=== PATIENT | female | born 1975 | race Two or more races ===

== ENCOUNTER 2022-11-27 12:48 | Inpatient (IN) ==
--- NOTE | 2022-11-27 13:34 | EKG ---
Test Reason : high fever and back pain Blood Pressure : */* mmHG Vent. Rate : 87 BPM Atrial Rate : 87 BPM P-R Int : 134 ms QRS Dur : 72 ms QT Int : 320 ms P-R-T Axes : 74 49 45 degrees QTc Int : 385 ms Normal sinus rhythm Cannot rule out Anterior infarct , age undetermined Abnormal ECG No previous ECGs available Confirmed by Eric Zuleta ([id number]) on 11/28/2022 8:38:47 AM Referred By: Confirmed By: Eric Zuleta
[2022-11-27 13:42] LABS: BASOPHILS % (AUTO) 0.2 % (0.2-1.0); EOSINOPHILS % (AUTO) 0.4 % (0.9-2.9); HEMATOCRIT 36.6 % (36.0-47.0); HEMOGLOBIN 12.4 g/dL (12.0-16.0); LYMPHOCYTES % (AUTO) 13.1 % (21.0-51.0); MEAN CORPUSCULAR HEMOGLOBIN 31.7 pg (27.0-34.0); MEAN CORPUSCULAR HGB CONC 33.9 g/dL (33.0-35.0); MEAN CORPUSCULAR VOLUME 93.5 fL (80.0-100.0); MEAN PLATELET VOLUME 8.2 fL (7.4-11.0); MONOCYTES # (AUTO) 0.5 x10^3/uL (0.3-0.8); NEUTROPHILS # (AUTO) 5.8 x10^3/uL (2.2-4.8); NEUTROPHILS % (AUTO) 79.3 % (42.0-75.0); RED BLOOD COUNT 3.91 X10^6/uL (3.5-5.4); RED CELL DISTRIBUTION WIDTH 13.3 % (11.6-16.5); WHITE BLOOD COUNT 7.3 X10^3/uL (3.6-10.0)
[2022-11-27 13:49] LABS: INR 1.34 (0.8-1.3)
--- NOTE | 2022-11-27 13:49 | RAD ---
HISTORYSEPSISSTUDYCHEST, 1 VIEWCOMPARISONNoneTECHNIQUEPA or AP view of the chestFINDINGSCardiac and mediastinal contours are within normal limits. Linear left base opacities consistent with subsegmental atelectasis or scar. No consolidation or segmental lung collapse. No definite pleural effusion or pneumothorax.IMPRESSIONLeft base subsegmental atelectasis versus scar.Electronically signed by: Antoni Knight (Nov 27, 2022 13:47:51)
[2022-11-27 13:53] LABS: APPEARANCE,URINE MUCOID (CLEAR); COLOR,URINE ORANGE (YELLOW)
[2022-11-27 13:54] LABS: BACTERIA,URINE TRACE /HPF (NEGATIVE); RENAL EPITHELIAL CELLS,URINE FEW /HPF (NEGATIVE); SQUAMOUS EPITHELIAL CELL,UR FEW /HPF (NEGATIVE)
[2022-11-27 13:57] LABS: ALANINE AMINOTRANSFERASE 45 Units/L (12-78); ALBUMIN 3.5 g/dL (3.4-5.0); ALKALINE PHOSPHATASE 98 Units/L (46-116); AMYLASE 40 Units/L (25-115); ASPARTATE AMINO TRANSFERASE 22 Units/L (15-37); BLOOD UREA NITROGEN 13 mg/dL (7-18); CALCIUM 8.7 mg/dL (8.5-10.1); CARBON DIOXIDE 26.3 mmol/L (21-32); CHLORIDE 102 mmol/L (98-107); COR NA(FOR HYPERGLY) 136 mmol/L (136-145); CREATINE KINASE 179 Units/L (26-192); LIPASE 72 Units/L (73-393); SODIUM 136 mmol/L (136-145); TOTAL PROTEIN 7.7 g/dL (6.4-8.2); eGFR NON BLACK RACES > 60 (>60)
[2022-11-27] MEDS ORDERED: TORADOL 30 MG VIAL IVP ONE (14:05)
--- NOTE | 2022-11-27 14:07 | DR.GENAD ---
HPI Time Seen Time Seen by Provider: 11/27/22 13:50 PCP Primary Care Physician: osmin Complaint/Symptoms Chief Complaint:: seen yest in [place] and dx with sepsis and discharged. has been taking motrin with last dose at 4am. left flank pain that radiates to the lower left abd. with burning urination/ feels leg pain like bones broke Self Treatment fo Chief Complaint: taking motrin COVID-19 Coronavirus risk:travel/contact w/high risk person: No Has patient experienced Coronavirus symptoms: No Coronavirus symptoms experienced: Fever Source History Provided: Patient and Friend Mode of Arrival Mode of Arrival: Wheelchair Timing Onset of Chief Complaint: 11/24/22 PMH PMH Past Medical History: Yes Past Medical History Comment: urinary problems Past Surgical History: No Family History History of Family Medical Conditions: Yes Family Medical History: Diabetes Mellitus, Cancer and Coronary Artery Disease Social History Does any household member use tobacco: No Alcohol Use: None Do you use any recreational Drugs:: No Lives With: Alone and Family Lives Where: Home Travel Risk Coronavirus risk:travel/contact w/high risk person: No Has patient experienced Coronavirus symptoms: No Coronavirus symptoms experienced: Fever Infectious screening In the last 2 months have you had wt loss of >10#?: NO Have you had fever, night sweats or hemotysis?: No Have you traveled outside the country in the last 6 months?: Yes ([place]) Travel History Location: [facility] Isolation: Standard PE Vital Signs Vitals: Temperature 98.5 F Pulse Rate 77 Respiratory Rate 20 Blood Pressure 112/51 O2 Sat by Pulse Oximetry 99 ROR Labs Reviewed Result Diagrams: 11/27/22 13:28 11/27/22 13:28 Laboratory: WBC 7.3 X10^3/uL (3.6-10.0) 11/27/22 13:28 RBC 3.91 X10^6/uL (3.5-5.4) 11/27/22 13:28 Hgb 12.4 g/dL (12.0-16.0) 11/27/22 13:28 Hct 36.6 % (36.0-47.0) 11/27/22 13:28 MCV 93.5 fL (80.0-100.0) 11/27/22 13:28 MCH 31.7 pg (27.0-34.0) 11/27/22 13:28 MCHC 33.9 g/dL (33.0-35.0) 11/27/22 13: RDW 13.3 % (11.6-16.5) 11/27/22 13: Plt Count 208 X10^3/uL (150.0-450.0) 11/27/22 13:28 MPV 8.2 fL (7.4-11.0) 11/27/22 13:28 Neut % (Auto) 79.3 % (42.0-75.0) H 11/27/22 13:28 Lymph % (Auto) 13.1 % (21.0-51.0) L 11/27/22 13:28 [place] % (Auto) 7.0 % (0.0-13.0) 11/27/22 13:28 Eos % (Auto) 0.4 % (0.9-2.9) L 11/27/22 13:28 Baso % (Auto) 0.2 % (0.2-1.0) 11/27/22 13:28 Neut # (Auto) 5.8 x10^3/uL (2.2-4.8) H 11/27/22 13:28 Lymph # (Auto) 1.0 X10^3/uL (1.3-2.9) L 11/27/22 13:28 [place] # (Auto) 0.5 x10^3/uL (0.3-0.8) 11/27/22 13:28 Eos # (Auto) 0.0 x10^3/uL (0.0-0.2) 11/27/22 13:28 Baso # (Auto) 0.0 X10^3/uL (0.0-0.1) 11/27/22 13:28 Absolute Nucleated RBC 0.0 /100WBC 11/27/22 13:28 PT 16.2 SECONDS (11.8-14.3) 11/27/22 13:28 INR Target Range - 11/27/22 13:28 INR 1.34 (0.8-1.3) H 11/27/22 13:28 APTT 36.6 SECONDS (22.9-36.5) H 11/27/22 13:28 PTT Comment - 11/27/22 13:28 Sample Site Rr 11/27/22 14:25 ABG pH 7.490 (7.35-7.45) H 11/27/22 14:25 ABG pCO2 31.0 mmHg (35.0-45.0) L 11/27/22 14:25 ABG pO2 86.0 mmHg (80.0-100.0) 11/27/22 14:25 ABG HCO3 23.6 mmol/L (22-26) 11/27/22 14:25 ABG O2 Saturation 97.0 % (90-100) 11/27/22 14:25 ABG Base Excess 0.9 mmol/L (-2.0-2.0) 11/27/22 14:25 Deuce Test Pos 11/27/22 14:25 A-a Gradient 25.0 mmHg 11/27/22 14:25 FiO2 21.0 11/27/22 14:25 Blood Gas Comments Marielle well cb 11/27/22 14:25 Sodium 136 mmol/L (136-145) 11/27/22 13:28 Corrected Sodium 136 mmol/L (136-145) 11/27/22 13:28 Potassium 3.4 mmol/L (3.5-5.1) L 11/27/22 13:28 Chloride 102 mmol/L (98-107) 11/27/22 13:28 Carbon Dioxide 26.3 mmol/L (21-32) 11/27/22 13:28 BUN 13 mg/dL (7-18) 11/27/22 13:28 Creatinine 1.00 mg/dL (0.55-1.02) 11/27/22 13:28 Est GFR (MDRD) Af Amer > 60 (>60) 11/27/22 13:28 Est GFR (MDRD) Non-Af > 60 (>60) 11/27/22 13:28 Glucose 116 mg/dL (65-99) H 11/27/22 13:28 Lactic Acid 0.7 mmol/L (0.4-2.0) 11/27/22 13:28 Calcium 8.7 mg/dL (8.5-10.1) 11/27/22 13:28 Corrected Calcium TNP 11/27/22 13:28 Phosphorus 2.0 mg/dL (2.6-4.7) L 11/27/22 13:28 Magnesium 2.0 mg/dL (2.0-2.9) 11/27/22 13:28 Total Bilirubin 0.80 mg/dL (0.2-1.0) 11/27/22 13:28 AST 22 Units/L (15-37) 11/27/22 13:28 ALT 45 Units/L (12-78) 11/27/22 13:28 Alkaline Phosphatase 98 Units/L (46-116) 11/27/22 13:28 Creatine Kinase 179 Units/L (26-192) 11/27/22 13:28 Troponin I High Sens < 4.0 ng/L (4.0-60.0) L 11/27/22 13:28 Total Protein 7.7 g/dL (6.4-8.2) 11/27/22 13:28 Albumin 3.5 g/dL (3.4-5.0) 11/27/22 13:28 Globulin 4.2 g/dL (2.5-4.5) 11/27/22 13:28 Albumin/Globulin Ratio 0.8 Ratio (1.1-2.1) L 11/27/22 13:28 Amylase 40 Units/L (25-115) 11/27/22 13:28 Lipase 72 Units/L (73-393) L 11/27/22 13:28 Specimen Type Cancelled 11/27/22 13:25 Urine Color Cancelled 11/27/22 13:25 Urine Appearance Cancelled 11/27/22 13:25 Urine pH Cancelled 11/27/22 13:25 Ur Specific [place] Cancelled 11/27/22 13:25 Urine Protein Cancelled 11/27/22 13:25 Urine Glucose (UA) Cancelled 11/27/22 13:25 Urine Ketones Cancelled 11/27/22 13:25 Urine Blood Cancelled 11/27/22 13:25 Urine Nitrite Cancelled 11/27/22 13:25 Urine Bilirubin Cancelled 11/27/22 13:25 Urine Urobilinogen Cancelled 11/27/22 13:25 Ur Leukocyte Esterase Cancelled 11/27/22 13:25 Urine RBC 10-20 /HPF (0-3) A 11/27/22 13:20 Urine WBC 10-20 /HPF (0-5) A 11/27/22 13:20 Ur Squamous Epith Cells Few /HPF (NEGATIVE) 11/27/22 13:20 Ur Renal Epithelial Cell Few /HPF (NEGATIVE) 11/27/22 13:20 Urine Bacteria Trace /HPF (NEGATIVE) 11/27/22 13:20 Urine Mucus Many /HPF (NEGATIVE) 11/27/22 13:20 Ur Culture Indicated? No/not indicated 11/27/22 13:20 SARS-CoV-2 (PCR) Negative (NEGATIVE) 11/27/22 15:58 Influenza Type A (PCR) Negative (NEGATIVE) 11/27/22 15:58 Influenza Type B (PCR) Negative (NEGATIVE) 11/27/22 15:58 RSV (PCR) Negative (NEGATIVE) 11/27/22 15:58 Opioid Opioid Risk Tool Age (Yoel box if 16-45): No History of Preadolescent Sexual Abuse: No Total: 0 Total Score Risk Category: Low Risk Copyright: Phil TORIBIO predicting aberrant behaviors Discharge Plan Discharge Plan Patient Disposition: 01 HOME, SELF-CARE Condition: Stable Orders to Discharge Patient Discharge Orders: Transfer (Routine); Ordered 11/27/22 Ordered By: YAZMIN AVENDAÑO
[2022-11-27] MEDS ORDERED: TORADOL 30 MG VIAL ONE (14:08)
[2022-11-27 14:29] LABS: LACTIC ACID 0.7 mmol/L (0.4-2.0)
[2022-11-27 14:30] LABS: ABG BASE EXCESS 0.9 mmol/L (-2.0-2.0); ABG HCO3 23.6 mmol/L (22-26)
[2022-11-27 14:31] LABS: ABG ALLEN TEST POS
[2022-11-27] MEDS ORDERED: ROCEPHIN VIAL 1 GRAM IVP ONE (15:36)
[2022-11-27] MEDS ORDERED: ROCEPHIN VIAL 1 GRAM ONE (15:45)
[2022-11-27] MEDS ORDERED: MORPHINE SULFATE INJ 4 MG IVP ONE (17:55)
[2022-11-27] MEDS ORDERED: MORPHINE SULFATE INJ 4 MG ONE (17:56)
[2022-11-27] MEDS ORDERED: ZOFRAN INJ 4 MG VIAL ONE (18:01)
[2022-11-27] MEDS ORDERED: TYLENOL 500 MG TAB EXTRA STRENGTH PO ONE ×2 (18:01→18:06)
[2022-11-27] MEDS ORDERED: ZOFRAN INJ 4 MG VIAL IVP ONE (18:06)
[2022-11-27] MEDS ORDERED: POTASSIUM CHLORIDE LIQ 20 MEQ UDC PO PRN (19:06)
[2022-11-27] MEDS ORDERED: MICRO K EXTEN CAP 10 MEQ PO PRN (19:06)
[2022-11-27] MEDS ORDERED: KLOR-CON PO PRN (19:06)
[2022-11-27] MEDS ORDERED: K-RIDER 10 MEQ/NS 100 ML 10 MEQ/100 ML BAG IV PRN (19:06)
[2022-11-27] MEDS ORDERED: POTASSIUM CHL 40 MEQ/NS 0.45% 500 ML IV PRN (19:06)
[2022-11-27] MEDS ORDERED: POTASSIUM CHL 60 MEQ/NS 0.45% 500 ML IV PRN (19:06)
[2022-11-27] MEDS: D5 LR 1,000 ML 1,000 ML IV SCH (19:34)
[2022-11-27 19:39] LABS: LACTIC ACID 0.5 mmol/L (0.4-2.0)
[2022-11-27 19:41] VITALS: BMI 25.7
[2022-11-27] MEDS: CIPRO IV 400 MG PREMIX* 400 MG/200 ML IV.SOLN. IV SCH (20:35)
[2022-11-28 01:48] LABS: LACTIC ACID 0.9 mmol/L (0.4-2.0)
[2022-11-28] MEDS: D5 LR 1,000 ML 1,000 ML IV SCH ×4 (02:06→20:24)
[2022-11-28 05:22] LABS: BASOPHILS % (AUTO) 0.1 % (0.2-1.0); EOSINOPHILS % (AUTO) 0.5 % (0.9-2.9); HEMATOCRIT 29.5 % (36.0-47.0); HEMOGLOBIN 10.3 g/dL (12.0-16.0); LYMPHOCYTES % (AUTO) 14.8 % (21.0-51.0); MEAN CORPUSCULAR HEMOGLOBIN 32.4 pg (27.0-34.0); MEAN CORPUSCULAR HGB CONC 34.9 g/dL (33.0-35.0); MEAN CORPUSCULAR VOLUME 92.8 fL (80.0-100.0); MEAN PLATELET VOLUME 8.3 fL (7.4-11.0); MONOCYTES # (AUTO) 0.7 x10^3/uL (0.3-0.8); MONOCYTES % (AUTO) 10.2 % (0.0-13.0); NEUTROPHILS # (AUTO) 4.9 x10^3/uL (2.2-4.8); NEUTROPHILS % (AUTO) 74.4 % (42.0-75.0); RED BLOOD COUNT 3.18 X10^6/uL (3.5-5.4); RED CELL DISTRIBUTION WIDTH 13.3 % (11.6-16.5); WHITE BLOOD COUNT 6.6 X10^3/uL (3.6-10.0)
[2022-11-28 05:24] LABS: ALANINE AMINOTRANSFERASE 31 Units/L (12-78); ALBUMIN 2.6 g/dL (3.4-5.0); ALKALINE PHOSPHATASE 91 Units/L (46-116); ASPARTATE AMINO TRANSFERASE 14 Units/L (15-37); BLOOD UREA NITROGEN 10 mg/dL (7-18); CALCIUM 8.2 mg/dL (8.5-10.1); CARBON DIOXIDE 28.3 mmol/L (21-32); CHLORIDE 105 mmol/L (98-107); COR CA(FOR HYPOALB) 9.3 mg/dL (8.5-10.1); COR NA(FOR HYPERGLY) 139 mmol/L (136-145); CREATININE 0.86 mg/dL (0.55-1.02); SODIUM 138 mmol/L (136-145); TOTAL PROTEIN 6.1 g/dL (6.4-8.2); eGFR NON BLACK RACES > 60 (>60)
[2022-11-28] MEDS: TORADOL 30 MG VIAL IVP PRN ×2 (07:42→17:20)
[2022-11-28] MEDS ORDERED: NS 1,000 ML IV 1,000 ML IV ONE (08:38)
[2022-11-28] MEDS: VSL#3 PO SCH (09:20)
[2022-11-28] MEDS: CIPRO IV 400 MG PREMIX* 400 MG/200 ML IV.SOLN. IV SCH ×2 (10:32→20:22)
--- NOTE | 2022-11-28 13:43 | CT ---
HISTORYLOWER ABD PAINSTUDYABDOMEN/PELVIS WITH CONCOMPARISONNone.TECHNIQUEMultiple axial images of the abdomen and pelvis were obtained from the lung bases to the upper thighs after the administration of IV contrast. Dose reduction techniques including Automated Exposure Control (AEC) and adjustment of mA and kV were utilized.FINDINGSLung bases demonstrate mild scattered subsegmental atelectasis versus scar. Trace bilateral pleural effusions. The heart is normal in size. The liver, gallbladder, spleen, pancreas, adrenal glands, and right kidney have a benign appearance. There is mild left hydronephrosis with subtle enhancement of the left renal pelvis and proximal ureter. There is subtle low-attenuation with altered corticomedullary differentiation at the left upper pole of the kidney. The urinary bladder appears benign. The uterus is present. No large abnormal pelvic mass. There is right adnexal lesion with thin peripheral enhancement that measures 2.1 cm image 64 series 3. Mild amount of fluid in the pelvis. Diverticulosis of the colon without evidence of diverticulitis. The appendix appears normal. Negative for bowel obstruction. [id number] amount of stool in the colon. Non-atherosclerotic normal caliber abdominal aorta. No free air or collection. No pathologic adenopathy. Small fat containing umbilical hernia. No acute osseous abnormality. Moderate degenerative disc disease with vacuum disc phenomena at L5-S1.IMPRESSIONSubtle low-attenuation with altered corticomedullary differentiation of the left kidney upper pole suspicious for early pyelonephritis. Mildly dilated left renal pelvis with thin peripheral enhancement suggests urinary tract infection.2.1 cm right adnexal lesion with thin peripheral enhancement. This can be seen with a corpus luteal or hemorrhagic cyst.Mild free fluid in the pelvis.Small fat containing umbilical hernia.Trace pleural effusions.Electronically signed by: Antoni Knight (Nov 28, 2022 13:41:48)
[2022-11-28] MEDS: K-DUR TAB 20 MEQ PO PRN (20:21)
[2022-11-29] MEDS: D5 LR 1,000 ML 1,000 ML IV SCH ×4 (05:12→20:24)
[2022-11-29 05:39] LABS: MEAN PLATELET VOLUME 8.3 fL (7.4-11.0)
[2022-11-29 05:43] LABS: BASOPHILS % (AUTO) 0.2 % (0.2-1.0); EOSINOPHILS # (AUTO) 0.1 x10^3/uL (0.0-0.2); EOSINOPHILS % (AUTO) 1.7 % (0.9-2.9); HEMATOCRIT 28.6 % (36.0-47.0); HEMOGLOBIN 9.9 g/dL (12.0-16.0); LYMPHOCYTES # (AUTO) 1.4 X10^3/uL (1.3-2.9); LYMPHOCYTES % (AUTO) 24.5 % (21.0-51.0); MEAN CORPUSCULAR HEMOGLOBIN 31.9 pg (27.0-34.0); MEAN CORPUSCULAR HGB CONC 34.7 g/dL (33.0-35.0); MEAN CORPUSCULAR VOLUME 92.1 fL (80.0-100.0); MONOCYTES # (AUTO) 0.5 x10^3/uL (0.3-0.8); MONOCYTES % (AUTO) 9.3 % (0.0-13.0); NEUTROPHILS # (AUTO) 3.6 x10^3/uL (2.2-4.8); NEUTROPHILS % (AUTO) 64.3 % (42.0-75.0); RED BLOOD COUNT 3.11 X10^6/uL (3.5-5.4); RED CELL DISTRIBUTION WIDTH 13.8 % (11.6-16.5); WHITE BLOOD COUNT 5.7 X10^3/uL (3.6-10.0)
[2022-11-29 05:49] LABS: ALANINE AMINOTRANSFERASE 42 Units/L (12-78); ALBUMIN 2.4 g/dL (3.4-5.0); ALKALINE PHOSPHATASE 111 Units/L (46-116); ASPARTATE AMINO TRANSFERASE 30 Units/L (15-37); BLOOD UREA NITROGEN 7 mg/dL (7-18); CALCIUM 8.2 mg/dL (8.5-10.1); CARBON DIOXIDE 24.1 mmol/L (21-32); CHLORIDE 107 mmol/L (98-107); COR CA(FOR HYPOALB) 9.5 mg/dL (8.5-10.1); COR NA(FOR HYPERGLY) 140 mmol/L (136-145); CREATININE 0.79 mg/dL (0.55-1.02); SODIUM 139 mmol/L (136-145); TOTAL PROTEIN 5.9 g/dL (6.4-8.2); eGFR NON BLACK RACES > 60 (>60)
--- NOTE | 2022-11-29 07:41 | DR.H&P ---
H&P History & Physical for Day of: H&P Date: 11/28/22 Chief Complaint Chief Complaint: Abdominal pain Chills, weakness Allergies Allergies Allergy/AdvReac Type Severity Reaction Status Date / Time No Known Allergies Allergy Verified 11/27/22 12:52 History of Present Illness History of Present Illness: Pt is a 47 year old female presenting with suprapubic and left flank pain for the past 2-3 days. She reports having dysuria, chills. Pt went to [place] ED and was treated for UTI and discharged. She did have imaging CT abdomen and pelvis that commented on possible early pyelonephritis on the left. Pt did not improve at home and came to [facility] ED. Labs/imaging: Wbc 6.6, Hgb 10.3, Plt 184, Na 138, K 3.8, Creatinine 0.86, Glucose 133, LA 0.6, Urine/blood culture pending from both [place] and [facility]. Will admit patient for acute pyelonephritis. Start on IV antibiotics: IV ciprofloxacin 400mg BID. She has been hypotensive, will bolus 1L normal saline and continue with IVF D5 LR@125ml/h. Will order another CT abdomen and pelvis for further evaluation. Continue to closely monitor and follow up labs/imaging. Family History Family Medical History: Diabetes Mellitus, Cancer and Hypertension Social History Does patient currently use any type of tobacco product: No Have you used tobacco products in the last 12 months: No Type of Tobacco Use: None Does any household member use tobacco: No Alcohol Use: None Medications Home Medications: No Known Allergies Allergy (Verified 11/27/22 12:52) CONTINUE taking the following medications ciprofloxacin HCl 500 mg tablet (Cipro) 500 mg PO BID 11/27/22 [History] Labs Result Diagrams: 11/29/22 05:00 11/29/22 05:00 Labs: Laboratory WBC 6.6 X10^3/uL (3.6-10.0) 11/28/22 04:10 RBC 3.18 X10^6/uL (3.5-5.4) L 11/28/22 04:10 Hgb 10.3 g/dL (12.0-16.0) L D 11/28/22 04:10 Hct 29.5 % (36.0-47.0) L 11/28/22 04:10 MCV 92.8 fL (80.0-100.0) 11/28/22 04:10 MCH 32.4 pg (27.0-34.0) 11/28/22 04:10 MCHC 34.9 g/dL (33.0-35.0) 11/28/22 04:10 RDW 13.3 % (11.6-16.5) 11/28/22 04:10 Plt Count 184 X10^3/uL (150.0-450.0) 11/28/22 04:10 MPV 8.3 fL (7.4-11.0) 11/28/22 04:10 Neut % (Auto) 74.4 % (42.0-75.0) 11/28/22 04:10 Lymph % (Auto) 14.8 % (21.0-51.0) L 11/28/22 04:10 [place] % (Auto) 10.2 % (0.0-13.0) 11/28/22 04:10 Eos % (Auto) 0.5 % (0.9-2.9) L 11/28/22 04:10 Baso % (Auto) 0.1 % (0.2-1.0) L 11/28/22 04:10 Neut # (Auto) 4.9 x10^3/uL (2.2-4.8) H 11/28/22 04:10 Lymph # (Auto) 1.0 X10^3/uL (1.3-2.9) L 11/28/22 04:10 [place] # (Auto) 0.7 x10^3/uL (0.3-0.8) 11/28/22 04:10 Eos # (Auto) 0.0 x10^3/uL (0.0-0.2) 11/28/22 04:10 Baso # (Auto) 0.0 X10^3/uL (0.0-0.1) 11/28/22 04:10 Absolute Nucleated RBC 0.0 /100WBC 11/28/22 04:10 PT 16.2 SECONDS (11.8-14.3) 11/27/22 13:28 INR Target Range - 11/27/22 13:28 INR 1.34 (0.8-1.3) H 11/27/22 13:28 APTT 36.6 SECONDS (22.9-36.5) H 11/27/22 13:28 PTT Comment - 11/27/22 13:28 Sample Site Rr 11/27/22 14:25 ABG pH 7.490 (7.35-7.45) H 11/27/22 14:25 ABG pCO2 31.0 mmHg (35.0-45.0) L 11/27/22 14:25 ABG pO2 86.0 mmHg (80.0-100.0) 11/27/22 14:25 ABG HCO3 23.6 mmol/L (22-26) 11/27/22 14:25 ABG O2 Saturation 97.0 % (90-100) 11/27/22 14:25 ABG Base Excess 0.9 mmol/L (-2.0-2.0) 11/27/22 14:25 Deuce Test Pos 11/27/22 14:25 A-a Gradient 25.0 mmHg 11/27/22 14:25 FiO2 21.0 11/27/22 14:25 Blood Gas Comments Marielle well cb 11/27/22 14:25 Sodium 138 mmol/L (136-145) 11/28/22 04:10 Corrected Sodium 139 mmol/L (136-145) 11/28/22 04:10 Potassium 3.8 mmol/L (3.5-5.1) 11/28/22 04:10 Chloride 105 mmol/L (98-107) 11/28/22 04:10 Carbon Dioxide 28.3 mmol/L (21-32) 11/28/22 04:10 BUN 10 mg/dL (7-18) 11/28/22 04:10 Creatinine 0.86 mg/dL (0.55-1.02) 11/28/22 04:10 Est GFR (MDRD) Af Amer > 60 (>60) 11/28/22 04:10 Est GFR (MDRD) Non-Af > 60 (>60) 11/28/22 04:10 Glucose 133 mg/dL (65-99) H 11/28/22 04:10 Lactic Acid 0.6 mmol/L (0.4-2.0) 11/28/22 07:13 Calcium 8.2 mg/dL (8.5-10.1) L 11/28/22 04:10 Corrected Calcium 9.3 mg/dL (8.5-10.1) 11/28/22 04:10 Phosphorus 2.0 mg/dL (2.6-4.7) L 11/27/22 13:28 Magnesium 2.0 mg/dL (2.0-2.9) 11/27/22 13:28 Total Bilirubin 0.40 mg/dL (0.2-1.0) 11/28/22 04:10 AST 14 Units/L (15-37) L 11/28/22 04:10 ALT 31 Units/L (12-78) 11/28/22 04:10 Alkaline Phosphatase 91 Units/L (46-116) 11/28/22 04:10 Creatine Kinase 110 Units/L (26-192) 11/28/22 01:15 Troponin I High Sens < 4.0 ng/L (4.0-60.0) L 11/28/22 01:15 Total Protein 6.1 g/dL (6.4-8.2) L 11/28/22 04:10 Albumin 2.6 g/dL (3.4-5.0) L 11/28/22 04:10 Globulin 3.5 g/dL (2.5-4.5) 11/28/22 04:10 Albumin/Globulin Ratio 0.7 Ratio (1.1-2.1) L 11/28/22 04:10 Amylase 40 Units/L (25-115) 11/27/22 13:28 Lipase 72 Units/L (73-393) L 11/27/22 13:28 Specimen Type Cancelled 11/27/22 13:25 Urine Color Cancelled 11/27/22 13:25 Urine Appearance Cancelled 11/27/22 13:25 Urine pH Cancelled 11/27/22 13:25 Ur Specific [place] Cancelled 11/27/22 13:25 Urine Protein Cancelled 11/27/22 13:25 Urine Glucose (UA) Cancelled 11/27/22 13:25 Urine Ketones Cancelled 11/27/22 13:25 Urine Blood Cancelled 11/27/22 13:25 Urine Nitrite Cancelled 11/27/22 13:25 Urine Bilirubin Cancelled 11/27/22 13:25 Urine Urobilinogen Cancelled 11/27/22 13:25 Ur Leukocyte Esterase Cancelled 11/27/22 13:25 Urine RBC 10-20 /HPF (0-3) A 11/27/22 13:20 Urine WBC 10-20 /HPF (0-5) A 11/27/22 13:20 Ur Squamous Epith Cells Few /HPF (NEGATIVE) 11/27/22 13:20 Ur Renal Epithelial Cell Few /HPF (NEGATIVE) 11/27/22 13:20 Urine Bacteria Trace /HPF (NEGATIVE) 11/27/22 13:20 Urine Mucus Many /HPF (NEGATIVE) 11/27/22 13:20 Ur Culture Indicated? No/not indicated 11/27/22 13:20 SARS-CoV-2 (PCR) Negative (NEGATIVE) 11/27/22 15:58 Influenza Type A (PCR) Negative (NEGATIVE) 11/27/22 15:58 Influenza Type B (PCR) Negative (NEGATIVE) 11/27/22 15:58 RSV (PCR) Negative (NEGATIVE) 11/27/22 15:58 Review of Systems Constitutional: Chills and Weakness Eyes: No Symptoms Reported ENT: No Symptoms Reported Respiratory: No Symptoms Reported Cardiovascular: No Symptoms Reported Gastrointestinal: Abdominal Pain (left flank) Genitourinary: Dysuria Musculoskeletal: No Symptoms Reported Skin: No Symptoms Reported Neurological: No Symptoms Reported Physical Exam Vital Signs: Temperature 99.0 F Pulse Rate 72 Respiratory Rate 21 Blood Pressure 85/51 O2 Sat by Pulse Oximetry 97 Oriented: Normal Eyes: Normal Ear: Normal Nose: Normal Throat: Normal Respiratory: Clear Throughout Cardiovascular: Normal : Normal Auscultation: Bowel Sounds: Normal Palpation: Normal Tenderness: Suprapubic; negative Rebound, Guarding or Rigidity Skin: Normal Musculoskeletal: Left (left CVA tenderness ) Psychiatric: Normal Mood Description: Calm and Appropriate Affect: Normal Speech Pattern: Clear and Appropriate Assessment/Plan (1) Acute pyelonephritis: Narrative Support Text: IV antibiotics, IVF Repeat CTAP Cultures pending Status: Acute (2) Generalized weakness: Status: Acute (3) UTI (urinary tract infection): Status: Acute Review H&P Reviewed: Yes Patient was examined?: Yes
[2022-11-29] MEDS: VSL#3 PO SCH (08:14)
[2022-11-29] MEDS: CIPRO IV 400 MG PREMIX* 400 MG/200 ML IV.SOLN. IV SCH ×2 (08:14→20:22)
--- NOTE | 2022-11-29 09:48 | PCM.PROG ---
Progress Note Progress Note for Day of Date of Exam: 11/29/22 Subjective Subjective: Pt is a 47 year old female admitted for acute left pyelonephritis. This morning she reports feeling better than she did yesterday and pain has improved. No acute events overnight. Labs/imaging: Wbc 5.7, Hgb 9.9, Plt 196, Na 139, K 3.7, Creatinine 0.79, Glucose 147, Urine/blood culture pending from both [facility] and [facility]. CT abdomen and pelvis was obtained yesterday that revealed: Subtle low-attenuation with altered corticomedullary differentiation of the left kidney upper pole suspicious for early pyelonephritis. Mildly dilated left renal pelvis with thin peripheral enhancement suggests urinary tract infection. She is currently receiving: antibiotics: IV ciprofloxacin 400mg BID and IVF D5 LR@125ml/h. Blood pressure has normalized. Will order another renal U/S to evaluate kidneys. Otherwise will continue with current treatment plan. Continue to closely monitor and follow up labs/imaging. Past Medical Family Social History Allergies: Allergies No Known Allergies Allergy (Verified 11/27/22 12:52) Review of Systems ROS: Changes notes (describe) (see hpi) Vital Signs and I&O's Vital Signs: Temperature 98.7 F Pulse Rate 70 Respiratory Rate 18 Blood Pressure 117/62 O2 Sat by Pulse Oximetry 95 Intake and Output: Intake & Output 11/26/22 11/27/22 11/28/22 11/29/22 23:59 23:59 23:59 23:59 Intake Total 873 / 873 3839 / 3839 1090 / 1090 Balance 873 / 873 3839 / 3839 1090 / 1090 Physical Exam Oriented: Normal Eyes: Normal Ear: Normal Nose: Normal Throat: Normal Cardiovascular: Normal : Normal Auscultation: Bowel Sounds: Normal Palpation: Normal Tenderness: Normal Skin: Normal Musculoskeletal: Normal Psychiatric: Normal Mood Description: Calm and Appropriate Affect: Normal Speech Pattern: Clear and Appropriate Laboratory and Diagnostics Result Diagrams: 11/29/22 05:00 11/29/22 05:00 Labs: Laboratory WBC 5.7 X10^3/uL (3.6-10.0) 11/29/22 05:00 RBC 3.11 X10^6/uL (3.5-5.4) L 11/29/22 05:00 Hgb 9.9 g/dL (12.0-16.0) L 11/29/22 05:00 Hct 28.6 % (36.0-47.0) L 11/29/22 05:00 MCV 92.1 fL (80.0-100.0) 11/29/22 05:00 MCH 31.9 pg (27.0-34.0) 11/29/22 05:00 MCHC 34.7 g/dL (33.0-35.0) 11/29/22 05:00 RDW 13.8 % (11.6-16.5) 11/29/22 05:00 Plt Count 196 X10^3/uL (150.0-450.0) 11/29/22 05:00 MPV 8.3 fL (7.4-11.0) 11/29/22 05:00 Neut % (Auto) 64.3 % (42.0-75.0) 11/29/22 05:00 Lymph % (Auto) 24.5 % (21.0-51.0) 11/29/22 05:00 [place] % (Auto) 9.3 % (0.0-13.0) 11/29/22 05:00 Eos % (Auto) 1.7 % (0.9-2.9) 11/29/22 05:00 Baso % (Auto) 0.2 % (0.2-1.0) 11/29/22 05:00 Neut # (Auto) 3.6 x10^3/uL (2.2-4.8) 11/29/22 05:00 Lymph # (Auto) 1.4 X10^3/uL (1.3-2.9) 11/29/22 05:00 [place] # (Auto) 0.5 x10^3/uL (0.3-0.8) 11/29/22 05:00 Eos # (Auto) 0.1 x10^3/uL (0.0-0.2) 11/29/22 05:00 Baso # (Auto) 0.0 X10^3/uL (0.0-0.1) 11/29/22 05:00 Absolute Nucleated RBC 0.0 /100WBC 11/29/22 05:00 PT 16.2 SECONDS (11.8-14.3) 11/27/22 13:28 INR Target Range - 11/27/22 13:28 INR 1.34 (0.8-1.3) H 11/27/22 13:28 APTT 36.6 SECONDS (22.9-36.5) H 11/27/22 13:28 PTT Comment - 11/27/22 13:28 Sample Site Rr 11/27/22 14:25 ABG pH 7.490 (7.35-7.45) H 11/27/22 14:25 ABG pCO2 31.0 mmHg (35.0-45.0) L 11/27/22 14:25 ABG pO2 86.0 mmHg (80.0-100.0) 11/27/22 14:25 ABG HCO3 23.6 mmol/L (22-26) 11/27/22 14:25 ABG O2 Saturation 97.0 % (90-100) 11/27/22 14:25 ABG Base Excess 0.9 mmol/L (-2.0-2.0) 11/27/22 14:25 Deuce Test Pos 11/27/22 14:25 A-a Gradient 25.0 mmHg 11/27/22 14:25 FiO2 21.0 11/27/22 14:25 Blood Gas Comments Marielle well cb 11/27/22 14:25 Sodium 139 mmol/L (136-145) 11/29/22 05:00 Corrected Sodium 140 mmol/L (136-145) 11/29/22 05:00 Potassium 3.7 mmol/L (3.5-5.1) 11/29/22 05:00 Chloride 107 mmol/L (98-107) 11/29/22 05:00 Carbon Dioxide 24.1 mmol/L (21-32) 11/29/22 05:00 BUN 7 mg/dL (7-18) 11/29/22 05:00 Creatinine 0.79 mg/dL (0.55-1.02) 11/29/22 05:00 Est GFR (MDRD) Af Amer > 60 (>60) 11/29/22 05:00 Est GFR (MDRD) Non-Af > 60 (>60) 11/29/22 05:00 Glucose 147 mg/dL (65-99) H 11/29/22 05:00 Lactic Acid 0.6 mmol/L (0.4-2.0) 11/28/22 12:48 Calcium 8.2 mg/dL (8.5-10.1) L 11/29/22 05:00 Corrected Calcium 9.5 mg/dL (8.5-10.1) 11/29/22 05:00 Phosphorus 2.0 mg/dL (2.6-4.7) L 11/27/22 13:28 Magnesium 2.0 mg/dL (2.0-2.9) 11/27/22 13:28 Total Bilirubin 0.20 mg/dL (0.2-1.0) 11/29/22 05:00 AST 30 Units/L (15-37) 11/29/22 05:00 ALT 42 Units/L (12-78) 11/29/22 05:00 Alkaline Phosphatase 111 Units/L (46-116) 11/29/22 05:00 Creatine Kinase 110 Units/L (26-192) 11/28/22 01:15 Troponin I High Sens < 4.0 ng/L (4.0-60.0) L 11/28/22 01:15 Total Protein 5.9 g/dL (6.4-8.2) L 11/29/22 05:00 Albumin 2.4 g/dL (3.4-5.0) L 11/29/22 05:00 Globulin 3.5 g/dL (2.5-4.5) 11/29/22 05:00 Albumin/Globulin Ratio 0.7 Ratio (1.1-2.1) L 11/29/22 05:00 Amylase 40 Units/L (25-115) 11/27/22 13:28 Lipase 72 Units/L (73-393) L 11/27/22 13:28 Specimen Type Cancelled 11/27/22 13:25 Urine Color Cancelled 11/27/22 13:25 Urine Appearance Cancelled 11/27/22 13:25 Urine pH Cancelled 11/27/22 13:25 Ur Specific [place] Cancelled 11/27/22 13:25 Urine Protein Cancelled 11/27/22 13:25 Urine Glucose (UA) Cancelled 11/27/22 13:25 Urine Ketones Cancelled 11/27/22 13:25 Urine Blood Cancelled 11/27/22 13:25 Urine Nitrite Cancelled 11/27/22 13:25 Urine Bilirubin Cancelled 11/27/22 13:25 Urine Urobilinogen Cancelled 11/27/22 13:25 Ur Leukocyte Esterase Cancelled 11/27/22 13:25 Urine RBC 10-20 /HPF (0-3) A 11/27/22 13:20 Urine WBC 10-20 /HPF (0-5) A 11/27/22 13:20 Ur Squamous Epith Cells Few /HPF (NEGATIVE) 11/27/22 13:20 Ur Renal Epithelial Cell Few /HPF (NEGATIVE) 11/27/22 13:20 Urine Bacteria Trace /HPF (NEGATIVE) 11/27/22 13:20 Urine Mucus Many /HPF (NEGATIVE) 11/27/22 13:20 Ur Culture Indicated? No/not indicated 11/27/22 13:20 SARS-CoV-2 (PCR) Negative (NEGATIVE) 11/27/22 15:58 Influenza Type A (PCR) Negative (NEGATIVE) 11/27/22 15:58 Influenza Type B (PCR) Negative (NEGATIVE) 11/27/22 15:58 RSV (PCR) Negative (NEGATIVE) 11/27/22 15:58 Plan (1) Acute pyelonephritis: Status: Acute (2) Generalized weakness: Status: Acute (3) UTI (urinary tract infection): Status: Acute
[2022-11-29] MEDS: K-DUR TAB 20 MEQ PO PRN (11:17)
--- NOTE | 2022-11-29 13:33 | US ---
HISTORYAcute pyelonephritis. Abdominal pain. Myalgia.STUDYRENAL USCOMPARISONCT abdomen and pelvis 11/28/2022TECHNIQUEThirty-one images made by the manufacturing coordinator. Pimentel scale and color-flow images of the kidneys and lower pelvis were obtained.FINDINGSRight kidney: 10 x 4.5 cmLeft kidney: 11 x 5 cmThe cortex is normal in thickness and echogenicity. There is no solid mass or hydronephrosis. Right resistive index measures 0.6. Left resistive index measures 0.6.The urinary bladder is minimally distended with no wall thickening. Bladder volume was 63 mL.IMPRESSION1. No significant abnormalityElectronically signed by: Manjinder Ruiz (Nov 29, 2022 13:31:55)
[2022-11-29] MEDS: TORADOL 30 MG VIAL IVP PRN (14:55)
[2022-11-29] MEDS: TYLENOL 325 MG TAB PO PRN (20:04)
[2022-11-30] MEDS: D5 LR 1,000 ML 1,000 ML IV SCH ×2 (02:54→11:37)
[2022-11-30] MEDS: TYLENOL 325 MG TAB PO PRN (05:31)
[2022-11-30 06:13] LABS: BASOPHILS % (AUTO) 0.2 % (0.2-1.0); EOSINOPHILS # (AUTO) 0.1 x10^3/uL (0.0-0.2); EOSINOPHILS % (AUTO) 2.5 % (0.9-2.9); HEMATOCRIT 28.7 % (36.0-47.0); HEMOGLOBIN 9.9 g/dL (12.0-16.0); LYMPHOCYTES # (AUTO) 1.3 X10^3/uL (1.3-2.9); LYMPHOCYTES % (AUTO) 32.4 % (21.0-51.0); MEAN CORPUSCULAR HEMOGLOBIN 32.3 pg (27.0-34.0); MEAN CORPUSCULAR HGB CONC 34.6 g/dL (33.0-35.0); MEAN CORPUSCULAR VOLUME 93.3 fL (80.0-100.0); MEAN PLATELET VOLUME 7.9 fL (7.4-11.0); MONOCYTES # (AUTO) 0.4 x10^3/uL (0.3-0.8); MONOCYTES % (AUTO) 9.1 % (0.0-13.0); NEUTROPHILS # (AUTO) 2.2 x10^3/uL (2.2-4.8); NEUTROPHILS % (AUTO) 55.8 % (42.0-75.0); RED BLOOD COUNT 3.08 X10^6/uL (3.5-5.4); RED CELL DISTRIBUTION WIDTH 13.1 % (11.6-16.5)
[2022-11-30 06:33] LABS: ALANINE AMINOTRANSFERASE 40 Units/L (12-78); ALBUMIN 2.5 g/dL (3.4-5.0); ALKALINE PHOSPHATASE 106 Units/L (46-116); ASPARTATE AMINO TRANSFERASE 16 Units/L (15-37); BLOOD UREA NITROGEN 8 mg/dL (7-18); CALCIUM 8.5 mg/dL (8.5-10.1); CHLORIDE 106 mmol/L (98-107); COR CA(FOR HYPOALB) 9.7 mg/dL (8.5-10.1); COR NA(FOR HYPERGLY) 142 mmol/L (136-145); CREATININE 0.74 mg/dL (0.55-1.02); SODIUM 141 mmol/L (136-145); TOTAL PROTEIN 6.1 g/dL (6.4-8.2); eGFR NON BLACK RACES > 60 (>60)
[2022-11-30] MEDS: VSL#3 PO SCH (08:26)
[2022-11-30] MEDS: CIPRO IV 400 MG PREMIX* 400 MG/200 ML IV.SOLN. IV SCH (08:26)
[2022-11-30] MEDS: K-DUR TAB 20 MEQ PO PRN (08:27)
[2022-11-30] MEDS: MAGNESIUM SULFATE 1 GRAM/100 mL PREMIX 1 G/100 ML BAG IV PRN ×2 (09:27→11:46)
[2022-11-30 11:47] VITALS: BP 107/54
--- NOTE | 2022-12-03 08:55 | W.DIS.FURT ---
Summary of Discharge Discharge Summary of Date Date of Exam: 11/30/22 Admission Date Date of Admission: 11/27/22 Admission Diagnosis Patient Problems (Updated 11/27/22 @ 18:38 by Ashley Lainez) Acute pyelonephritis (Acute) N10 Generalized weakness (Acute) R53.1 UTI (urinary tract infection) (Acute) N39.0 Hospital Course: Pt is a 47 year old female admitted for acute left pyelonephritis that was noted on CT abdomen and pelvis. Her hospital/treatment course included receiving: antibiotics: IV ciprofloxacin 400mg BID and IVF D5 LR@125ml/h. Labs/imaging: Wbc 4.0, Hgb 9.9, Plt 231, Na 141, K 4.0, Creatinine 0.74, Glucose 121, Blood culture no growth, Urine culture from [facility] positive for E coli, Renal U/S no acute abnormalities. Pt responded well to treatments. Rx bactrim based on urine culture antibiotic sensitivities. She was discharged in stable condition, instructed to follow up with pcp in 1 week. Vital Signs: Vital Signs (72 hours) 11/27/22 14:12 11/27/22 14:14 11/27/22 14:14 Temperature Pulse Rate 81 Respiratory Rate 22 43 H Blood Pressure 117/56 O2 Sat by Pulse Oximetry 100 Oxygen Delivery Method 11/27/22 14:15 11/27/22 14:30 11/27/22 14:30 Temperature Pulse Rate 81 84 Respiratory Rate 55 H 34 H Blood Pressure 107/55 O2 Sat by Pulse Oximetry 100 99 Oxygen Delivery Method 11/27/22 14:45 11/27/22 15:00 11/27/22 15:00 Temperature Pulse Rate 80 83 Respiratory Rate 18 39 H Blood Pressure 106/66 O2 Sat by Pulse Oximetry 98 98 Oxygen Delivery Method 11/27/22 15:15 11/27/22 15:30 11/27/22 15:30 Temperature Pulse Rate 80 78 Respiratory Rate 56 H 63 H Blood Pressure 102/54 O2 Sat by Pulse Oximetry 97 97 Oxygen Delivery Method 11/27/22 16:00 11/27/22 16:15 11/27/22 16:30 Temperature Pulse Rate 75 Respiratory Rate 24 Blood Pressure 102/57 111/58 O2 Sat by Pulse Oximetry 96 Oxygen Delivery Method 11/27/22 16:30 11/27/22 16:45 11/27/22 17:00 Temperature Pulse Rate 77 76 Respiratory Rate 25 H 18 Blood Pressure 109/58 O2 Sat by Pulse Oximetry 98 97 Oxygen Delivery Method 11/27/22 17:00 11/27/22 17:15 11/27/22 17:30 Temperature Pulse Rate 76 74 Respiratory Rate 28 H 22 Blood Pressure 112/51 O2 Sat by Pulse Oximetry 99 99 Oxygen Delivery Method 11/27/22 17:30 11/27/22 17:45 11/27/22 17:56 Temperature 98.5 F Pulse Rate 80 77 Respiratory Rate 13 20 Blood Pressure O2 Sat by Pulse Oximetry 98 99 Oxygen Delivery Method 11/27/22 18:07 11/27/22 18:08 11/27/22 18:09 Temperature 101.5 F H Pulse Rate Respiratory Rate 20 20 Blood Pressure O2 Sat by Pulse Oximetry Oxygen Delivery Method 11/27/22 19:41 11/27/22 18:00 11/27/22 18:00 Temperature Pulse Rate 91 H Respiratory Rate 57 H Blood Pressure 115/83 O2 Sat by Pulse Oximetry 100 Oxygen Delivery Method Room Air 11/27/22 18:17 11/27/22 18:30 11/27/22 18:30 Temperature Pulse Rate 78 75 Respiratory Rate 20 28 H Blood Pressure 109/55 O2 Sat by Pulse Oximetry 100 99 Oxygen Delivery Method 11/27/22 19:02 11/27/22 19:15 11/27/22 19:30 Temperature 100.7 F H Pulse Rate 74 72 72 Respiratory Rate 18 21 21 Blood Pressure O2 Sat by Pulse Oximetry 98 99 97 Oxygen Delivery Method 11/27/22 19:45 11/27/22 20:00 11/27/22 20:01 Temperature Pulse Rate 71 64 Respiratory Rate 27 H 20 Blood Pressure 85/49 O2 Sat by Pulse Oximetry 98 100 Oxygen Delivery Method 11/27/22 20:01 11/27/22 21:07 11/27/22 20:15 Temperature 99.4 F Pulse Rate 70 57 L Respiratory Rate 30 H 27 H Blood Pressure O2 Sat by Pulse Oximetry 99 100 Oxygen Delivery Method 11/27/22 20:30 11/27/22 20:45 11/27/22 21:00 Temperature Pulse Rate 61 64 Respiratory Rate 23 Blood Pressure 87/48 O2 Sat by Pulse Oximetry 99 96 Oxygen Delivery Method 11/27/22 21:00 11/27/22 19:08 11/27/22 21:15 Temperature Pulse Rate 63 61 Respiratory Rate 20 Blood Pressure O2 Sat by Pulse Oximetry 97 97 Oxygen Delivery Method 11/27/22 21:30 11/27/22 21:45 11/27/22 22:00 Temperature Pulse Rate 63 62 61 Respiratory Rate Blood Pressure O2 Sat by Pulse Oximetry 97 97 97 Oxygen Delivery Method 11/27/22 22:01 11/27/22 22:01 11/27/22 22:14 Temperature Pulse Rate 76 57 L Respiratory Rate Blood Pressure 81/41 O2 Sat by Pulse Oximetry 98 97 Oxygen Delivery Method 11/27/22 22:14 11/27/22 22:15 11/27/22 22:28 Temperature Pulse Rate 57 L 64 Respiratory Rate 14 Blood Pressure 85/48 O2 Sat by Pulse Oximetry 96 98 Oxygen Delivery Method 11/27/22 22:28 11/27/22 22:30 11/27/22 23:00 Temperature Pulse Rate 55 L 55 L Respiratory Rate 14 14 Blood Pressure 83/53 O2 Sat by Pulse Oximetry 97 97 Oxygen Delivery Method 11/28/22 00:00 11/27/22 22:45 11/27/22 23:00 Temperature Pulse Rate 55 L 54 L Respiratory Rate 14 15 Blood Pressure 84/52 O2 Sat by Pulse Oximetry 97 97 Oxygen Delivery Method 11/27/22 23:00 11/27/22 23:15 11/27/22 23:30 Temperature Pulse Rate 53 L 53 L 54 L Respiratory Rate 15 14 16 Blood Pressure O2 Sat by Pulse Oximetry 97 97 98 Oxygen Delivery Method 11/27/22 23:45 11/28/22 00:00 11/28/22 00:00 Temperature Pulse Rate 52 L 52 L Respiratory Rate 14 14 Blood Pressure 96/55 O2 Sat by Pulse Oximetry 97 98 Oxygen Delivery Method 11/28/22 00:15 11/28/22 00:28 11/27/22 21:50 Temperature 97.7 F Pulse Rate 53 L Respiratory Rate 13 Blood Pressure O2 Sat by Pulse Oximetry 98 Oxygen Delivery Method Room Air 11/28/22 00:30 11/28/22 00:45 11/28/22 01:00 Temperature Pulse Rate 59 L 63 50 L Respiratory Rate 15 31 H 14 Blood Pressure O2 Sat by Pulse Oximetry 99 99 98 Oxygen Delivery Method 11/28/22 01:01 11/28/22 01:01 11/28/22 01:05 Temperature Pulse Rate 52 L 55 L Respiratory Rate 15 23 Blood Pressure 76/38 O2 Sat by Pulse Oximetry 99 99 Oxygen Delivery Method 11/28/22 01:05 11/28/22 01:06 11/28/22 01:06 Temperature Pulse Rate 55 L Respiratory Rate 18 Blood Pressure 77/42 84/46 O2 Sat by Pulse Oximetry 99 Oxygen Delivery Method 11/28/22 01:15 11/28/22 01:29 11/28/22 01:29 Temperature Pulse Rate 55 L 52 L Respiratory Rate 13 15 Blood Pressure 91/52 O2 Sat by Pulse Oximetry 99 99 Oxygen Delivery Method 11/28/22 01:30 11/28/22 01:45 11/28/22 02:00 Temperature Pulse Rate 52 L 58 L 55 L Respiratory Rate 16 15 15 Blood Pressure O2 Sat by Pulse Oximetry 99 99 99 Oxygen Delivery Method 11/28/22 02:01 11/28/22 02:01 11/28/22 02:15 Temperature Pulse Rate 54 L 52 L Respiratory Rate 15 16 Blood Pressure 92/52 O2 Sat by Pulse Oximetry 99 99 Oxygen Delivery Method 11/28/22 02:30 11/28/22 02:45 11/28/22 03:00 Temperature Pulse Rate 55 L 55 L Respiratory Rate 22 16 Blood Pressure 90/54 O2 Sat by Pulse Oximetry 99 99 Oxygen Delivery Method 11/28/22 03:00 11/28/22 03:15 11/28/22 03:30 Temperature Pulse Rate 56 L 55 L 54 L Respiratory Rate 16 17 13 Blood Pressure O2 Sat by Pulse Oximetry 99 98 99 Oxygen Delivery Method 11/28/22 03:45 11/28/22 04:00 11/28/22 04:01 Temperature 98.2 F Pulse Rate 52 L 63 57 L Respiratory Rate 15 19 15 Blood Pressure O2 Sat by Pulse Oximetry 99 100 100 Oxygen Delivery Method 11/28/22 04:01 11/28/22 04:15 11/28/22 04:30 Temperature Pulse Rate 66 64 Respiratory Rate 22 22 Blood Pressure 92/50 O2 Sat by Pulse Oximetry 100 100 Oxygen Delivery Method 11/28/22 04:45 11/28/22 05:00 11/28/22 05:01 Temperature Pulse Rate 69 63 Respiratory Rate 23 20 Blood Pressure 114/57 O2 Sat by Pulse Oximetry 100 100 Oxygen Delivery Method 11/28/22 05:01 11/28/22 05:15 11/28/22 05:30 Temperature Pulse Rate 60 64 70 Respiratory Rate 12 16 25 H Blood Pressure O2 Sat by Pulse Oximetry 100 100 100 Oxygen Delivery Method 11/28/22 05:45 11/28/22 06:00 11/28/22 06:01 Temperature Pulse Rate 74 81 Respiratory Rate 29 H 29 H Blood Pressure 109/56 O2 Sat by Pulse Oximetry 100 100 Oxygen Delivery Method 11/28/22 06:01 11/28/22 07:39 11/28/22 07:42 Temperature Pulse Rate 78 Respiratory Rate 24 20 Blood Pressure O2 Sat by Pulse Oximetry 100 Oxygen Delivery Method Room Air 11/28/22 07:00 11/28/22 07:15 11/28/22 07:30 Temperature 99.0 F Pulse Rate 83 75 78 Respiratory Rate 28 H 18 22 Blood Pressure O2 Sat by Pulse Oximetry 100 100 97 Oxygen Delivery Method 11/28/22 07:45 11/28/22 08:00 11/28/22 08:00 Temperature Pulse Rate 93 H 85 Respiratory Rate 34 H 23 Blood Pressure 85/51 O2 Sat by Pulse Oximetry 97 97 Oxygen Delivery Method 11/28/22 08:15 11/28/22 08:12 11/28/22 08:30 Temperature Pulse Rate 72 73 Respiratory Rate 21 20 19 Blood Pressure O2 Sat by Pulse Oximetry 97 97 Oxygen Delivery Method 11/28/22 08:45 11/28/22 09:00 11/28/22 09:00 Temperature Pulse Rate 72 74 Respiratory Rate 17 21 Blood Pressure 88/50 O2 Sat by Pulse Oximetry 98 97 Oxygen Delivery Method 11/28/22 09:15 11/28/22 08:10 11/28/22 10:01 Temperature Pulse Rate 64 Respiratory Rate 17 Blood Pressure O2 Sat by Pulse Oximetry 98 97 Oxygen Delivery Method Room Air 11/28/22 09:30 11/28/22 09:45 11/28/22 10:00 Temperature Pulse Rate 71 66 68 Respiratory Rate 17 17 18 Blood Pressure O2 Sat by Pulse Oximetry 99 98 98 Oxygen Delivery Method 11/28/22 10:06 11/28/22 10:06 11/28/22 10:15 Temperature Pulse Rate 68 68 Respiratory Rate 19 18 Blood Pressure 100/51 O2 Sat by Pulse Oximetry 99 99 Oxygen Delivery Method 11/28/22 10:30 11/28/22 10:45 11/28/22 11:00 Temperature 98.1 F Pulse Rate 68 70 79 Respiratory Rate 19 53 H 33 H Blood Pressure O2 Sat by Pulse Oximetry 99 100 99 Oxygen Delivery Method 11/28/22 11:15 11/28/22 11:30 11/28/22 11:45 Temperature Pulse Rate 69 64 74 Respiratory Rate 15 18 Blood Pressure O2 Sat by Pulse Oximetry 98 99 100 Oxygen Delivery Method 11/28/22 12:00 11/28/22 12:02 11/28/22 12:02 Temperature 98.7 F Pulse Rate 68 64 Respiratory Rate 22 17 Blood Pressure 87/50 O2 Sat by Pulse Oximetry 99 99 Oxygen Delivery Method 11/28/22 12:15 11/28/22 12:30 11/28/22 12:45 Temperature Pulse Rate 63 63 62 Respiratory Rate 16 17 18 Blood Pressure O2 Sat by Pulse Oximetry 97 98 97 Oxygen Delivery Method 11/28/22 13:00 11/28/22 13:02 11/28/22 13:03 Temperature Pulse Rate 61 74 Respiratory Rate 15 Blood Pressure 106/55 O2 Sat by Pulse Oximetry 99 99 Oxygen Delivery Method 11/28/22 13:03 11/28/22 13:23 11/28/22 13:29 Temperature Pulse Rate 72 64 Respiratory Rate 18 20 Blood Pressure 106/55 O2 Sat by Pulse Oximetry 97 99 Oxygen Delivery Method 11/28/22 13:29 11/28/22 13:30 11/28/22 13:45 Temperature Pulse Rate 66 72 Respiratory Rate 25 H 18 Blood Pressure 95/54 O2 Sat by Pulse Oximetry 99 98 Oxygen Delivery Method 11/28/22 14:00 11/28/22 14:00 11/28/22 14:03 Temperature Pulse Rate 69 Respiratory Rate 18 Blood Pressure 80/48 114/63 O2 Sat by Pulse Oximetry 100 Oxygen Delivery Method 11/28/22 14:03 11/28/22 14:03 11/28/22 14:15 Temperature Pulse Rate 66 76 Respiratory Rate 36 H 24 Blood Pressure 114/63 O2 Sat by Pulse Oximetry 99 100 Oxygen Delivery Method 11/28/22 16:00 11/28/22 17:20 11/28/22 17:50 Temperature 98.6 F Pulse Rate 68 Respiratory Rate 18 20 20 Blood Pressure 112/52 O2 Sat by Pulse Oximetry 98 Oxygen Delivery Method 11/28/22 19:40 11/28/22 19:00 11/28/22 19:45 Temperature 98.8 F Pulse Rate 69 Respiratory Rate 18 Blood Pressure 100/52 O2 Sat by Pulse Oximetry 97 Oxygen Delivery Method Room Air Room Air Room Air 11/28/22 19:45 11/29/22 00:00 11/29/22 00:00 Temperature 98.5 F 98.5 F Pulse Rate 86 66 66 Respiratory Rate 20 20 Blood Pressure 103/58 103/58 O2 Sat by Pulse Oximetry 97 97 97 Oxygen Delivery Method Room Air 11/29/22 04:00 11/29/22 07:00 11/29/22 08:00 Temperature 99.1 F 98.7 F Pulse Rate 66 70 Respiratory Rate 20 18 Blood Pressure 114/55 117/62 O2 Sat by Pulse Oximetry 96 95 Oxygen Delivery Method Room Air Room Air Room Air 11/29/22 08:44 11/29/22 12:00 11/29/22 14:55 Temperature 98.6 F Pulse Rate 70 Respiratory Rate 20 20 Blood Pressure 120/56 O2 Sat by Pulse Oximetry 97 Oxygen Delivery Method Room Air Room Air 11/29/22 16:00 11/29/22 15:25 11/29/22 20:04 Temperature 99.0 F Pulse Rate 71 Respiratory Rate 20 20 18 Blood Pressure 120/59 O2 Sat by Pulse Oximetry 97 Oxygen Delivery Method Room Air 11/29/22 20:22 11/29/22 20:22 11/29/22 19:00 Temperature Pulse Rate 70 Respiratory Rate Blood Pressure O2 Sat by Pulse Oximetry 97 Oxygen Delivery Method Room Air Room Air 11/29/22 20:00 11/29/22 21:04 11/30/22 00:00 Temperature 98.1 F 98.3 F Pulse Rate 65 56 L Respiratory Rate 16 18 16 Blood Pressure 118/55 114/58 O2 Sat by Pulse Oximetry 97 98 Oxygen Delivery Method Room Air Room Air 11/30/22 04:00 11/30/22 05:31 11/30/22 06:31 Temperature 98.2 F Pulse Rate 53 L Respiratory Rate 15 19 20 Blood Pressure 119/56 O2 Sat by Pulse Oximetry 98 Oxygen Delivery Method Room Air 11/30/22 07:00 11/30/22 08:00 11/30/22 11:46 Temperature 98.3 F 98.0 F Pulse Rate 64 68 Respiratory Rate 18 18 Blood Pressure 122/57 107/54 O2 Sat by Pulse Oximetry 97 97 Oxygen Delivery Method Room Air Room Air Room Air Labs: Laboratory Last Values WBC 4.0 X10^3/uL (3.6-10.0) 11/30/22 05:50 RBC 3.08 X10^6/uL (3.5-5.4) L 11/30/22 05:50 Hgb 9.9 g/dL (12.0-16.0) L 11/30/22 05:50 Hct 28.7 % (36.0-47.0) L 11/30/22 05:50 MCV 93.3 fL (80.0-100.0) 11/30/22 05:50 MCH 32.3 pg (27.0-34.0) 11/30/22 05:50 MCHC 34.6 g/dL (33.0-35.0) 11/30/22 05:50 RDW 13.1 % (11.6-16.5) 11/30/22 05:50 Plt Count 231 X10^3/uL (150.0-450.0) 11/30/22 05:50 MPV 7.9 fL (7.4-11.0) 11/30/22 05:50 Neut % (Auto) 55.8 % (42.0-75.0) 11/30/22 05:50 Lymph % (Auto) 32.4 % (21.0-51.0) 11/30/22 05:50 [place] % (Auto) 9.1 % (0.0-13.0) 11/30/22 05:50 Eos % (Auto) 2.5 % (0.9-2.9) 11/30/22 05:50 Baso % (Auto) 0.2 % (0.2-1.0) 11/30/22 05:50 Neut # (Auto) 2.2 x10^3/uL (2.2-4.8) 11/30/22 05:50 Lymph # (Auto) 1.3 X10^3/uL (1.3-2.9) 11/30/22 05:50 [place] # (Auto) 0.4 x10^3/uL (0.3-0.8) 11/30/22 05:50 Eos # (Auto) 0.1 x10^3/uL (0.0-0.2) 11/30/22 05:50 Baso # (Auto) 0.0 X10^3/uL (0.0-0.1) 11/30/22 05:50 Absolute Nucleated RBC 0.1 /100WBC 11/30/22 05:50 PT 16.2 SECONDS (11.8-14.3) 11/27/22 13:28 INR Target Range - 11/27/22 13:28 INR 1.34 (0.8-1.3) H 11/27/22 13:28 APTT 36.6 SECONDS (22.9-36.5) H 11/27/22 13:28 PTT Comment - 11/27/22 13:28 Sample Site Rr 11/27/22 14:25 ABG pH 7.490 (7.35-7.45) H 11/27/22 14:25 ABG pCO2 31.0 mmHg (35.0-45.0) L 11/27/22 14:25 ABG pO2 86.0 mmHg (80.0-100.0) 11/27/22 14:25 ABG HCO3 23.6 mmol/L (22-26) 11/27/22 14:25 ABG O2 Saturation 97.0 % (90-100) 11/27/22 14:25 ABG Base Excess 0.9 mmol/L (-2.0-2.0) 11/27/22 14:25 Deuce Test Pos 11/27/22 14:25 A-a Gradient 25.0 mmHg 11/27/22 14:25 FiO2 21.0 11/27/22 14:25 Blood Gas Comments Marielle well cb 11/27/22 14:25 Sodium 141 mmol/L (136-145) 11/30/22 05:50 Corrected Sodium 142 mmol/L (136-145) 11/30/22 05:50 Potassium 4.0 mmol/L (3.5-5.1) 11/30/22 10:33 Chloride 106 mmol/L (98-107) 11/30/22 05:50 Carbon Dioxide 25.0 mmol/L (21-32) 11/30/22 05:50 BUN 8 mg/dL (7-18) 11/30/22 05:50 Creatinine 0.74 mg/dL (0.55-1.02) 11/30/22 05:50 Est GFR (MDRD) Af Amer > 60 (>60) 11/30/22 05:50 Est GFR (MDRD) Non-Af > 60 (>60) 11/30/22 05:50 Glucose 121 mg/dL (65-99) H 11/30/22 05:50 Lactic Acid 0.6 mmol/L (0.4-2.0) 11/28/22 12:48 Calcium 8.5 mg/dL (8.5-10.1) 11/30/22 05:50 Corrected Calcium 9.7 mg/dL (8.5-10.1) 11/30/22 05:50 Phosphorus 2.0 mg/dL (2.6-4.7) L 11/27/22 13:28 Magnesium 1.6 mg/dL (2.0-2.9) L 11/30/22 05:50 Total Bilirubin 0.20 mg/dL (0.2-1.0) 11/30/22 05:50 AST 16 Units/L (15-37) 11/30/22 05:50 ALT 40 Units/L (12-78) 11/30/22 05:50 Alkaline Phosphatase 106 Units/L (46-116) 11/30/22 05:50 Creatine Kinase 110 Units/L (26-192) 11/28/22 01:15 Troponin I High Sens < 4.0 ng/L (4.0-60.0) L 11/28/22 01:15 Total Protein 6.1 g/dL (6.4-8.2) L 11/30/22 05:50 Albumin 2.5 g/dL (3.4-5.0) L 11/30/22 05:50 Globulin 3.6 g/dL (2.5-4.5) 11/30/22 05:50 Albumin/Globulin Ratio 0.7 Ratio (1.1-2.1) L 11/30/22 05:50 Amylase 40 Units/L (25-115) 11/27/22 13:28 Lipase 72 Units/L (73-393) L 11/27/22 13:28 Specimen Type Cancelled 11/27/22 13:25 Urine Color Cancelled 11/27/22 13:25 Urine Appearance Cancelled 11/27/22 13:25 Urine pH Cancelled 11/27/22 13:25 Ur Specific [place] Cancelled 11/27/22 13:25 Urine Protein Cancelled 11/27/22 13:25 Urine Glucose (UA) Cancelled 11/27/22 13:25 Urine Ketones Cancelled 11/27/22 13:25 Urine Blood Cancelled 11/27/22 13:25 Urine Nitrite Cancelled 11/27/22 13:25 Urine Bilirubin Cancelled 11/27/22 13:25 Urine Urobilinogen Cancelled 11/27/22 13:25 Ur Leukocyte Esterase Cancelled 11/27/22 13:25 Urine RBC 10-20 /HPF (0-3) A 11/27/22 13:20 Urine WBC 10-20 /HPF (0-5) A 11/27/22 13:20 Ur Squamous Epith Cells Few /HPF (NEGATIVE) 11/27/22 13:20 Ur Renal Epithelial Cell Few /HPF (NEGATIVE) 11/27/22 13:20 Urine Bacteria Trace /HPF (NEGATIVE) 11/27/22 13:20 Urine Mucus Many /HPF (NEGATIVE) 11/27/22 13:20 Ur Culture Indicated? No/not indicated 11/27/22 13:20 SARS-CoV-2 (PCR) Negative (NEGATIVE) 11/27/22 15:58 Influenza Type A (PCR) Negative (NEGATIVE) 11/27/22 15:58 Influenza Type B (PCR) Negative (NEGATIVE) 11/27/22 15:58 RSV (PCR) Negative (NEGATIVE) 11/27/22 15:58 Reason For Visit: ACUTE PYELONEPHRITIS, ABDOMINAL PAIN, MYALGIA Discharge Diagnosis All Active Problems (Updated 11/27/22 @ 18:38 by Ashley Lainez) Acute pyelonephritis (Acute) Generalized weakness (Acute) UTI (urinary tract infection) (Acute) Plan of Treatment: Continue with present treatment and follow up plan. Pt is to keep follow up appointment as instructed and take medications as ordered. Discharge Medications Discharge Medications: No Known Allergies Allergy (Verified 11/27/22 12:52) CONTINUE taking the following medications ciprofloxacin HCl 500 mg tablet (Cipro) 500 mg PO BID 11/27/22 [History] New Prescriptions sulfamethoxazole 800 mg-trimethoprim 160 mg tablet (Bactrim DS) 1 tab PO BID 10 days #20 tabs 11/30/22 [Rx] Discharge Disposition Discharge Disposition: Home Discharge Condition: Stable Discharge Plan Discharge Plan Hospital Course: Pt is a 47 year old female admitted for acute left pyelonephritis that was noted on CT abdomen and pelvis. Her hospital/treatment course included receiving: an tibiotics: IV ciprofloxacin 400mg BID and IVF D5 LR@125ml/h. Labs/imaging: Wbc 4.0, Hgb 9.9, Plt 231, Na 141, K 4.0, Creatinine 0.74, Glucose 121, Blood culture no growth, Urine culture from [facility] positive for E coli, Renal U/S no acute abnormalities. Pt responded well to treatments. Rx bactrim based on urine culture antibiotic sensitivities. She was discharged in stable condition, instructed to follow up with pcp in 1 week. Patient Disposition: HOME, SELF-CARE Condition: Stable Health Concerns: Post Hospitalization: new medications and changes needed to prevent readmission or further decline. Pt educated and given instructions on all concerns. Care Plan Goals: Problem: Pain/Alteration in Comfort Goal: Improve/ Resolve Pain; Achieve Pain Tolerance Instructions: Take pain medications as prescribed. Contact your primary care provider if your pain is unrelieved or worsens. Follow up with primary care provider as directed. Plan of Treatment: Continue with present treatment and follow up plan. Pt is to keep follow up appointment as instructed and take medications as ordered. Prescriptions: New sulfamethoxazole-trimethoprim [Bactrim DS] 800-160 mg Tablet 1 tab PO BID 10 Days Qty: 20 0RF No Action ciprofloxacin HCl [Cipro] 500 mg Tablet 500 mg PO BID Follow ups/Referrals Follow ups/Referrals: Dev Salas [STAFF PHYSICIAN] - 12/07/22 3:00 pm Instructions Instructions: Pyelonephritis, Adult, [id number], Fatigue, Weakness, [id number], Urinary Tract Infection, Adult Stand Alone Forms: Excuse From Work or School
== END 2022-11-30 14:15 | disposition home or self-care (01) | DRG 690 ==
LOC: ER 12:48 → ICU 18:18 → MED/SURG 11-28 14:41
PROVIDERS: ADMIT Family Medicine; ATTEND Family Medicine
DX: N39.0 Urinary tract infection, site not specified; Z20.822 Contact with and (suspected) exposure to COVID-19; N10 Acute pyelonephritis; R79.1 Abnormal coagulation profile; R53.1 Weakness; M79.10 Myalgia, unspecified site; I95.89 Other hypotension; R10.84 Generalized abdominal pain